=== PATIENT | female | born 1945 | race Hispanic/Latino ===

== ENCOUNTER 2017-12-06 10:15 | Emergency (ER) | payer MEDICARE ==
[~2017-12-06] VITALS: Ht 144.8 cm; Wt 65.3 kg
[2017-12-06] MEDS ORDERED: MECLIZINE HCL 12.5 MG TAB PO ONE (10:30)
[2017-12-06 11:02] LABS: BILIRUBIN,URINE NEGATIVE (NEGATIVE); CLARITY,URINE CLEAR (CLEAR); COLOR,URINE YELLOW (YELLOW); KETONES,URINE NEGATIVE (NEGATIVE); LEUKOCYTE ESTERASE ,URINE TRACE (NEGATIVE); NITRITE,URINE NEGATIVE (NEGATIVE); PROTEIN,URINE DIPSTICK NEGATIVE (NEGATIVE); URINE UROBILINOGEN 0.2 mg/dL (0.2 - 1)
--- NOTE | 2017-12-06 11:05 | Diagnostic Imaging Report ---
PROCEDURE: CHEST SINGLE (PORTABLE) COMPARISON: None. INDICATIONS: VERTIGO FINDINGS: Lungs are well-inflated. No focal consolidation, pleural effusion, or pneumothorax. Tortuosity and atherosclerotic calcification of the thoracic aorta with an otherwise normal cardiomediastinal contour for portable, AP technique. No acute osseous abnormality. CONCLUSION: No acute cardiopulmonary abnormality. Dictated by: Car Benson M.D. on 12/06/2017 at 11:07 Electronically approved by: Car Benson M.D. on 12/06/2017 at 11:07
[2017-12-06 11:06] LABS: EPITHELIAL CELLS,URINE FEW /LPF
[2017-12-06 11:08] LABS: BASOPHILS # (AUTO) 0.1 (0.0-0.1); BASOPHILS % 1.1 % (0.0-1.0); EOSINOPHILS # (AUTO) 0.1 (0.0-0.4); EOSINOPHILS % 1.7 % (0.0-6.0); HEMATOCRIT 43.7 % (34.2-44.1); HEMOGLOBIN 14.6 g/dL (12.0-16.0); LYMPHOCYTES # (AUTO) 1.8 (1.0-3.2); LYMPHOCYTES % 29.1 % (18.0-39.1); MEAN CORPUSCULAR HEMOGLOBIN 29.6 pg (28-32); MEAN CORPUSCULAR HGB CONC 33.4 g/dL (31-35); MEAN CORPUSCULAR VOLUME 88.6 fL (81-99); MONOCYTES # (AUTO) 0.5 (0.2-0.8); MONOCYTES % 8.6 % (4.4-11.3); NEUTROPHILS # (AUTO) 3.7 (2.1-6.9); NEUTROPHILS % 58.7 % (38.7-80.0); PLATELET COUNT 208 x10e3/uL (140-360); RED BLOOD COUNT 4.93 x10e6/uL (3.6-5.1); RED CELL DISTRIBUTION WIDTH 13.2 % (11.7-14.4)
[2017-12-06 11:21] LABS: PROTHROMBIN TIME 12.4 seconds (11.9-14.5)
[2017-12-06 11:22] LABS: PARTIAL THROMBOPLASTIN TIME 30.8 seconds (23.8-35.5)
[2017-12-06 11:29] LABS: ALANINE AMINOTRANSFERASE 63 IU/L (0-55); ALBUMIN 4.2 g/dL (3.5-5.0); ALBUMIN/GLOBULIN RATIO 1.3 (0.8-2.0); ALKALINE PHOSPHATASE 55 IU/L (40-150); ANION GAP 15.9 mmol/L (8-16); BLOOD UREA NITROGEN 16 mg/dL (7-26); BUN/CREATININE RATIO 21 (6-25); CALCIUM 10.4 mg/dL (8.4-10.2); CARBON DIOXIDE 28 mmol/L (22-29); CHLORIDE 103 mmol/L (98-107); CREATINE KINASE 101 IU/L (29-168); CREATININE, SERUM 0.77 mg/dL (0.57-1.11); EST GLOMERULAR FILTRATION RATE > 60 ML/MIN (60-); GLUCOSE 116 mg/dL (74-118); MAGNESIUM 1.9 MG/DL (1.3-2.1); POTASSIUM 4.9 mmol/L (3.5-5.1); SODIUM 142 mmol/L (136-145)
[2017-12-06 11:50] LABS: THYROID STIMULATING HORMONE 1.288 uIU/mL (0.350-4.940)
--- NOTE | 2017-12-06 13:54 | Diagnostic Imaging Report ---
Examination: CT head without contrast Clinical Indication: Dizziness. Technique: Transaxial noncontrast images from the skull base through the vertex were obtained. Sagittal and coronal reformatted images were done. Comparison: None. Findings: Scalp: There is a 4.6 x 4.1 x 1.6 cm (superoinferior x anteroposterior x transverse dimensions) heterogeneous lesion in the right frontotemporal scalp. There is no associated erosion of the outer table of the right frontotemporal calvarium. Bones: Intact. No fractures. No blastic or lytic lesions. Brain sulci: Appropriate for patient's age. Ventricles: Normal in size and configuration. No hydrocephalus. . Extra-axial space: No abnormalities. Parenchyma: There are subtle mild confluent areas of low-attenuation within subcortical and periventricular white matter, nonspecific, but could represent microvascular ischemic disease. No masses, hemorrhage, or acute or chronic cortical based vascular insults. Suprasellar region: No abnormalities. Craniocervical junction: The foramen magnum is patent. No Chiari one malformation. Impression: 1. No acute intracranial finding. 2. Mild chronic microvascular ischemic change. 3. Right frontotemporal 4.6 x 4.1 x 1.6 cm scalp lesion. A nonemergent contrast-enhanced brain MRI may be obtained for further evaluation. Signed by: Dr. Carmen Dias M.D. on 12/06/2017 1:50 PM
== END 2017-12-06 14:55 | disposition home or self-care (01) ==
LOC: ER 10:15
DX: R42 Dizziness and giddiness (principal); R11.0 Nausea; I10 Essential (primary) hypertension; E11.9 Type 2 diabetes mellitus without complications
CPT/HCPCS: 36415; 70450; 71045; 80053; 81001; 82550; 82553; 83735; 84443; 84484; 85025; 85610; 85730; 87086; 93005; 99284

== ENCOUNTER → 2024-05-07 | Day surgery (SDC) | payer OTHER ==
[~2024-05-07] MED LIST: ACETAMINOPHEN 1000 MG/100 ML IV ONE; ACETAMINOPHEN 1000 MG/100 ML IV PRN; ALLOPURINOL100 MG PO; ASPIRIN 325 MG TAB PO SCH; ASPIRIN81 MG PO; BENICAR20 MG PO; CELECOXIB 100 MG CAP PO SCH; DEXAMETHASONE SOD PHOS INJ 4 MG/ML SDV ONE; DIPHENHYDRAMINE HCL INJ 50 MG/ML VIAL IV PRN; DOCUSATE SODIUM 100 MG CAP PO PRN; FENTANYL CITRATE/PF 100MCG/2 ML INJ ONE; HYDROCODONE/APAP 5MG-325MG TAB PO PRN; HYDROCODONE/APAP 7.5MG-325MG 1 EA TAB PO PRN; KETAMINE HCL INJ 50 MG/ML 10 ML VIAL ONE; LIDOCAINE HCL 2% LOCAL INJ 5 ML SDV VIAL INJ ONE; METFORMIN HCL850 MG PO; MIDAZOLAM HCL 2 MG/2 ML VIAL ONE; ONDANSETRON HCL INJ 2MG/ML 2ML 2 MG/ML VIAL IV PRN; ONDANSETRON HCL INJ 2MG/ML 2ML 2 MG/ML VIAL ONE; PRAVASTATIN SOD10 MG; PROPOFOL IV EMULSION 10 MG/ML 20 ML VIAL ONE; ROPIVACAINE 246.25 MG, EPINEPHRINE HCL 1:1000 1ML 0.5 MG, CLONIDINE HCL 0.08 MG, KETORO... INJ ONE; ROPIVACAINE/EPI/CLONIDINE/KET 50 ML SYRINGE INJ ONE; SEVOFLURANE INHAL SOLN 250 ML PEN BTL ONE; SODIUM CHLORIDE 0.9% 1000ML 1,000 ML IV SCH; SODIUM CHLORIDE 0.9% 500ML 500 ML ONE; TRANEXAMIC ACID 1,000 MG/10 ML ML ONE; TRANEXAMIC ACID 20 ML ONE; Vancomycin IV 500 MG ONE
[2024-05-07] MEDS: CELECOXIB 200 MG CAP ONE (07:23)
[2024-05-07] MEDS: CEFAZOLIN SODIUM 2 GM ONE (07:24)
[2024-05-07] MEDS: LACTATED RINGER'S 1,000 ML ONE (07:24)
[2024-05-07] MEDS: DEXAMETHASONE SOD PHOS 10 MG/1 ML VIAL ONE (07:24)
[2024-05-07] MEDS: GABAPENTIN 300 MG CAP ONE (07:24)
[2024-05-07 09:32] VITALS: TEMP 98.7
[2024-05-07] MEDS: HYDROCODONE/APAP 7.5MG-325MG 1 EA TAB PO ONE (10:22)
[2024-05-07 12:30] VITALS: BP 148/76; PULSE 78; RESP 16; O2SAT 96
== END | disposition home health service (06) ==
LOC: OR 06:11
PROVIDERS: ATTEND Specialist
DX: M17.11 Unilateral primary osteoarthritis, right knee (principal); M25.761 Osteophyte, right knee; E11.9 Type 2 diabetes mellitus without complications; I10 Essential (primary) hypertension; E78.5 Hyperlipidemia, unspecified; Z01.812 Encounter for preprocedural laboratory examination; Z01.818 Encounter for other preprocedural examination; Z79.82 Long term (current) use of aspirin; Z79.84 Long term (current) use of oral hypoglycemic drugs; Z79.899 Other long term (current) drug therapy; Z68.30 Body mass index [BMI] 30.0-30.9, adult
CPT/HCPCS: 27447; 71046; 73560; 86850; 86900; 97116; 97161; 97530; C1713; C1776 ×4; J0131; J0690 ×2; J1100 ×2; J2003; J2250; J2405; J2704; J2795; J3010; J3370; J7040; J7121; J0171; J1885